=== PATIENT | female | born 1950 | race Caucasian/White ===

== ENCOUNTER 2024-11-03 10:28 | Outpatient (CLI) | payer MEDICARE ==
[2024-11-03 11:57] LABS: Anion Gap 13 mmol/L (10-20); BUN (Urea Nitrogen) 17 mg/dL (9.8-20.1); Calc. Creatinine Clearance 0 mL/min (70-130); Calcium 9.4 mg/dL (7.8-10.44); Carbon Dioxide 22 mmol/L (23-31); Chloride 110 mmol/L (98-107); Estimated GFR 63; Glucose 88 mg/dL (83-110); Potassium 4.2 mmol/L (3.5-5.1); Sodium 141 mmol/L (136-145)
[2024-11-03 12:06] LABS: Hematocrit 32.3 % (34.9-44.5); Hemoglobin 9.9 g/dL (12.0-15.5); Mean Corpuscular HGB CONC 30.7 g/dL (32.0-36.0); Mean Corpuscular Hemoglobin 24.4 pg (27.0-33.0); Mean Corpuscular Volume 79.6 fL (81.6-98.3); Mean Platelet Volume 9.4 fL (7.4-10.4); Platelet Count 424 10x3/uL (150-450); RBC Distribution Width 17.7 % (11.5-14.5); Red Blood Cell (RBC) Count 4.06 10x6/uL (3.90-5.03)
== END 2024-11-03 10:29 | disposition home or self-care (01) ==
LOC: CSHLAB 10:28
PROVIDERS: ATTEND Otolaryngology Otolaryngic Allergy
DX: Z01.818 Encounter for other preprocedural examination (principal); G47.33 Obstructive sleep apnea (adult) (pediatric); Z68.27 Body mass index [BMI] 27.0-27.9, adult
CPT/HCPCS: 80048; 85027; 93005; 93010

== ENCOUNTER 2024-11-09 05:45 | Day surgery (SDC) | payer MEDICARE ==
[2024-11-03 11:37] VITALS: BMI 25.3
[2024-11-09] MEDS ORDERED: Famotidine/PF 20 mg/2ml Vial ONE (06:47)
[2024-11-09] MEDS ORDERED: Midazolam HCl 2 mg/2 ml Vial ONE (06:47)
[2024-11-09] MEDS ORDERED: PROPOFOL 20 ML ONE (06:49)
[2024-11-09] MEDS ORDERED: fentaNYL 50 mcg/mL 1 mL Vial ONE (06:49)
[2024-11-09] MEDS ORDERED: Lidocaine 2% PF 5 ML VIAL ONE (06:50)
[2024-11-09] MEDS ORDERED: Ondansetron PF 4 MG/2 ML Vial ONE (06:50)
== END 2024-11-09 07:50 | disposition home or self-care (01) ==
LOC: CSHSDC 05:45
PROVIDERS: ATTEND Otolaryngology Otolaryngic Allergy
PROC: 4A1ZXQZ Monitoring of Sleep, External Approach (ICD-10-PCS; principal; 2024-11-09)
DX: G47.33 Obstructive sleep apnea (adult) (pediatric) (principal); H90.A22 Sensorineural hearing loss, unilateral, left ear, with restricted hearing on the contralateral side; H90.A31 Mixed conductive and sensorineural hearing loss, unilateral, right ear with restricted hearing on the contralateral side; E04.9 Nontoxic goiter, unspecified; F32.A Depression, unspecified; J45.909 Unspecified asthma, uncomplicated; D64.9 Anemia, unspecified; Z87.891 Personal history of nicotine dependence; Z88.5 Allergy status to narcotic agent; Z79.82 Long term (current) use of aspirin; Z79.51 Long term (current) use of inhaled steroids; Z79.899 Other long term (current) drug therapy
CPT/HCPCS: 42975; J2250; J2405; J2704; J3010; J3490

== ENCOUNTER 2025-01-11 09:22 | Day surgery (SDC) | payer OTHER ==
[2025-01-06 08:26] VITALS: BMI 24.7
[2025-01-11] MEDS ORDERED: EPINEPHrine 1 MG/ML VIAL ONE (10:01)
[2025-01-11] MEDS ORDERED: Vancomycin 1 GM VIAL ONE (10:02)
[2025-01-11] MEDS ORDERED: Lidocaine 1% w/Epinephrine 1:200K 30 ML VIAL ONE (10:02)
[2025-01-11] MEDS ORDERED: Midazolam HCl 2 mg/2 ml Vial ONE (10:07)
[2025-01-11] MEDS ORDERED: Fentanyl 100 MCG/2 ML VIAL ONE ×2 (10:09→12:30)
[2025-01-11] MEDS ORDERED: CEFAZOLIN 1 GM VIAL ONE (10:19)
[2025-01-11] MEDS ORDERED: Glycopyrrolate 0.2 MG/ML 5 ML SYRINGE ONE (10:37)
[2025-01-11] MEDS ORDERED: ePHEDrine Sulfate 50 MG/10 ML VIAL ONE (10:39)
[2025-01-11] MEDS ORDERED: HYDROcodone/Acetaminophen 5/325 mg Tablet ONE (13:29)
== END 2025-01-11 13:55 | disposition home or self-care (01) ==
LOC: CSHSDC 09:22
PROVIDERS: ATTEND Otolaryngology Otolaryngic Allergy
PROC: 0JH60DZ Insertion of Multiple Array Stimulator Generator into Chest Subcutaneous Tissue and Fascia, Open Approach (ICD-10-PCS; principal; 2025-01-11)
PROC: 00HE0MZ Insertion of Neurostimulator Lead into Cranial Nerve, Open Approach (ICD-10-PCS; 2025-01-11)
DX: J30.9 Allergic rhinitis, unspecified (principal); G47.33 Obstructive sleep apnea (adult) (pediatric); J44.9 Chronic obstructive pulmonary disease, unspecified; H90.A22 Sensorineural hearing loss, unilateral, left ear, with restricted hearing on the contralateral side; H90.A31 Mixed conductive and sensorineural hearing loss, unilateral, right ear with restricted hearing on the contralateral side; E04.9 Nontoxic goiter, unspecified; F32.A Depression, unspecified; D64.9 Anemia, unspecified; Z87.891 Personal history of nicotine dependence; Z88.5 Allergy status to narcotic agent; Z79.51 Long term (current) use of inhaled steroids; Z79.899 Other long term (current) drug therapy; Z68.26 Body mass index [BMI] 26.0-26.9, adult
CPT/HCPCS: 64582; 70360; 71045; C1820; C1898; J0690; J2250; J3010; J3370; C1787; J0171